=== PATIENT | female | born 1970 | race Caucasian/White ===

== ENCOUNTER 2018-02-02 13:32 | Emergency (ER) | payer BC ==
[2018-02-02 13:49] VITALS: BP 118/99
[2018-02-02] MEDS ORDERED: Albuterol 0.083% 2.5 MG/3 ML Neb Soln NEB ONE (13:58)
[2018-02-02] MEDS ORDERED: predniSONE 20 MG Tab PO ONE (14:05)
[2018-02-02] MEDS ORDERED: Benzonatate 100 MG Cap PO ONE (14:06)
--- NOTE | 2018-02-02 14:19 | EDM.PDOC ---
ED HPI GENERAL MEDICAL PROBLEM - General Chief Complaint: Respiratory Problem Stated Complaint: COUGH/TROUBLE BREATHING Time Seen by Provider: 02/02/18 13:54 Source of Information: Reports: Patient History Limitations: Reports: No Limitations - History of Present Illness INITIAL COMMENTS - FREE TEXT/NARRATIVE: Patient is a 47-year-old female presents ED complaining of coughing, shortness of breath, and wheezing. She denies any chest pain. No fever. She was seen in the [facility] ER with basic labs, chest x-ray, and EKG completed. She was diagnosed with bronchitis and placed on Zithromax and albuterol inhaler. Completed abx course. She has been taking the Ventolin inhaler as prescribed with no improvements to coughing. She is not sleeping well due to the cough. She stopped smoking a week ago Tuesday. She has no diagnosis of COPD. She has no other past medical history and currently taking no medications. She denies any chest pain, nausea/vomiting, abdominal pain, dysuria, pain to her lower extremities, swelling to the lower extremities, or any additional complaints. There has been no recent sick exposures. Chest Pain Score (Numeric/FACES): 7 - Related Data Allergies Allergy/AdvReac Type Severity Reaction Status Date / Time Penicillins AdvReac Mild yeast Verified 02/02/18 13:42 infection Home Meds: Home Meds Omeprazole [Prilosec] 10 mg PO BTNUNITS 11/24/15 [History] Albuterol [Ventolin HFA] 2 puff INH Q4HR 02/02/18 [History] Benzonatate [Tessalon Perle] 100 mg PO TID PRN #21 capsule 02/02/18 [Rx] Prednisone [IMW: predniSONE] 2 tab PO WITHBREAKFAST #10 tab 02/02/18 [Rx] Past Medical History HEENT History: Reports: None Cardiovascular History: Reports: None Respiratory History: Reports: None Gastrointestinal History: Reports: GERD Genitourinary History: Reports: Renal Calculus Musculoskeletal History: Reports: Fracture Other Musculoskeletal History: hx fx elbow, Current Left Plantar fasciatis flare up Neurological History: Reports: None, Migraines Psychiatric History: Reports: None Endocrine/Metabolic History: Reports: None Hematologic History: Reports: Anemia, Blood Transfusion(s) Immunologic History: Reports: None Oncologic (Cancer) History: Reports: None Dermatologic History: Reports: None - Past Surgical History Musculoskeletal Surgical History: Reports: Carpal Tunnel Social & Family History - Family History Family Medical History: Noncontributory - Tobacco Use Smoking Status *Q: Former Smoker Years of Tobacco use: 20 Packs/Tins Daily: 1 Used Tobacco, but Quit: Yes Month/Year Tobacco Last Used: 01/29 - Caffeine Use Caffeine Use: Reports: Soda, Tea - Recreational Drug Use Recreational Drug Use: No Drug Use in Last 12 Months: No ED ROS GENERAL - Review of Systems Review Of Systems: ROS reveals no pertinent complaints other than HPI. ED EXAM, GENERAL - Physical Exam Exam: See Below Exam Limited By: No Limitations General Appearance: Alert, WD/WN, Other (Long episodes of coughing.) Eye Exam: Bilateral Eye: Normal Inspection Ears: Hearing Grossly Normal Nose: Normal Inspection Throat/Mouth: Normal Inspection, Normal Oropharynx, Normal Voice, No Airway Compromise Neck: Normal Inspection Respiratory/Chest: No Respiratory Distress, No Accessory Muscle Use, Chest Non- Tender, Wheezing (Throughout) Cardiovascular: Normal Peripheral Pulses, Tachycardia (With coughing) Peripheral Pulses: 4+: Radial (L), Radial (R) GI/Abdominal: Normal Bowel Sounds, Soft, Non-Tender, No Organomegaly, No Distention Extremities: Normal Inspection, Non-Tender, No Pedal Edema, Normal Capillary Refill Neurological: Alert, Oriented, CN II-XII Intact, Normal Cognition, No Motor/ Sensory Deficits Psychiatric: Normal Affect, Normal Mood Skin Exam: Warm, Dry, Intact, Normal Color Course - Vital Signs Last Recorded V/S: Last Vital Signs Temp 97 F 02/02/18 13:43 Pulse 97 02/02/18 13:43 Resp 26 H 02/02/18 13:43 BP 118/99 H 02/02/18 13:43 Pulse Ox 94 L 02/02/18 14:25 - Orders/Labs/Meds Orders: Active Orders 24 hr Category Date Time Status RT Aerosol Therapy [RC] ASDIRECTED Care 02/02/18 14:00 Active RT Aerosol Therapy [RC] ASDIRECTED Care 02/02/18 14:25 Active Labs: Laboratory Tests 02/02/18 02/02/18 02/02/18 Range/Units 14:45 14:45 14:45 WBC 11.44 H (3.98-10.04) K/mm3 RBC 4.51 (3.98-5.22) M/mm3 Hgb 13.5 (11.2-15.7) gm/L Hct 40.3 (34.1-44.9) % MCV 89.4 (79.4-94.8) fl MCH 29.9 (25.6-32.2) pg MCHC 33.5 (32.2-35.5) g/dl RDW Std Deviation 41.9 (36.4-46.3) fL Plt Count 382 H (182-369) K/mm3 MPV 9.0 L (9.4-12.3) fl Neut % (Auto) 62.4 (34.0-71.1) % Lymph % (Auto) 25.1 (19.3-51.7) % [place] % (Auto) 6.6 (4.7-12.5) % Eos % (Auto) 5.3 (0.7-5.8) Baso % (Auto) 0.4 (0.1-1.2) % Neut # (Auto) 7.13 H (1.56-6.13) K/mm3 Lymph # (Auto) 2.87 (1.18-3.74) K/mm3 [place] # (Auto) 0.76 H (0.24-0.36) K/mm3 Eos # (Auto) 0.61 H (0.04-0.36) K/mm3 Baso # (Auto) 0.05 (0.01-0.08) K/mm3 Sodium 143 (136-145) mEq/L Potassium 3.1 L (3.5-5.1) mEq/L Chloride 105 (98-107) mEq/L Carbon Dioxide 23 (21-32) mEq/L Anion Gap 18.1 H (5-15) BUN 9 (7-18) mg/dL Creatinine 0.8 (0.55-1.02) mg/dL Est Cr Clr Drug Dosing 68.02 mL/min Estimated GFR (MDRD) > 60 (>60) mL/min BUN/Creatinine Ratio 11.3 L (14-18) Glucose 84 (74-106) mg/dL Calcium 9.3 (8.5-10.1) mg/dL Total Bilirubin 0.4 (0.2-1.0) mg/dL AST 28 (15-37) U/L ALT 22 (14-59) U/L Alkaline Phosphatase 113 (46-116) U/L C-Reactive Protein 0.9 (<1.0) mg/dL Total Protein 7.7 (6.4-8.2) g/dl Albumin 3.9 (3.4-5.0) g/dl Globulin 3.8 gm/dL Albumin/Globulin Ratio 1.0 (1-2) Meds: Medications Discontinued Medications Generic Name Dose Route Start Last Admin Trade Name Michael PRN Reason Stop Dose Admin Albuterol 2.5 mg 02/02/18 13:58 02/02/18 14:05 Proventil Neb Soln NEB 02/02/18 13:59 2.5 mg ONETIME ONE Administration Albuterol/Ipratropium 3 ml 02/02/18 14:25 02/02/18 14:29 Duoneb 3.0-0.5 Mg/3 Ml NEB 02/02/18 14:26 3 ml ONETIME ONE Administration Albuterol/Ipratropium Confirm 02/02/18 14:31 02/02/18 14:37 Duoneb 3.0-0.5 Mg/3 Ml Administered 02/02/18 14:32 Not Given Dose 3 ml .ROUTE .STK-MED ONE Benzonatate 200 mg 02/02/18 14:06 02/02/18 14:41 Tessalon Perles PO 02/02/18 14:07 200 mg ONETIME ONE Administration Prednisone 40 mg 02/02/18 14:05 02/02/18 14:42 Prednisone PO 02/02/18 14:06 40 mg ONETIME ONE Administration - Re-Assessments/Exams Free Text/Narrative Re-Assessment/Exam: Patient has diffuse wheezing throughout. Ordered albuterol neb treatment 2.5 mg 1. In addition Tessalon Perles 200 mg by mouth and also prednisone 40 mg by mouth for bronchitis. Initial lab studies will include CRP, CBC, CMP, troponin, and chest x-ray two- view. Will obtain to retrieve notes from ER visit. Review previous notes patient was diagnosed with bronchitis placed on Zithromax , albuterol inhaler. Chest x-ray was negative for pneumonia. WBC is within normal limits. EKG sinus rhythm. Troponin negative. CMP did not reveal any acute findings. Patient's magnesium is 1.7 with potassium 3.2. EKG: SR rate of 72. No acute changes. 02/02/18 14:38 Chest x-ray reviewed with Dr. Horton with no acute findings noted. 1510 reassessment, vss stable. patient is feeling better. Cough has improved. Awaiting for lab results. 02/02/18 15:31 Still awaiting for CMP. White blood cell count 11.44, hemoglobin 13.5, neutrophil percentage is normal. Platelet count 382. CRP 0.9. 02/02/18 16:13 Still awaiting on CMP. 02/02/18 16:17 Reassessment, coughing has subsided awaiting on CMP. WIll call her with results if any significant findings. Will discharge patient home with instruction for bronchitis. CMP reviewed. Potassium 3.1 mildly low. She is using a albuterol inhaler. Departure - Departure Time of Disposition: 16:17 Disposition: Home, Self-Care 01 Condition: Good Clinical Impression: Bronchitis - Discharge Information Prescriptions: Benzonatate [Tessalon Perle] 100 mg PO TID PRN #21 capsule PRN Reason: Cough Prednisone [IMW: predniSONE] 2 tab PO WITHBREAKFAST #10 tab Instructions: Acute Bronchitis, Adult, [id number] Referrals: PCP,Not In Area [Primary Care Provider] - Forms: ED Department Discharge, ED Return to Work/School Form Additional Instructions: Take the prednisone and Tessalon Perles as prescribed. Push the fluids. Refrain from smoking. Continue utilizing albuterol inhaler 1-2 puffs every 4 hours for wheezing, cough, shortness of breath. Follow-up with PCP in one week for reevaluation. Return to the ED if you develop any new or worsening symptoms. - My Orders Last 24 Hours: My Active Orders 02/02/18 14:00 RT Aerosol Therapy [RC] ASDIRECTED 02/02/18 14:25 RT Aerosol Therapy [RC] ASDIRECTED - Assessment/Plan Last 24 Hours: My Active Orders 02/02/18 14:00 RT Aerosol Therapy [RC] ASDIRECTED 02/02/18 14:25 RT Aerosol Therapy [RC] ASDIRECTED
[2018-02-02] MEDS ORDERED: Albuterol/Ipratropium 3.0-0.5 MG/3 ML Neb Soln NEB ONE (14:25)
[2018-02-02] MEDS ORDERED: Albuterol/Ipratropium 3.0-0.5 MG/3 ML Neb Soln ONE (14:31)
--- NOTE | 2018-02-02 14:42 | CR ---
Chest: Two views of the chest were obtained. Comparison: No previous study. Heart size and mediastinum are normal. Lungs are clear. Bony structures are unremarkable. Surgical clips are seen within the upper right abdomen from previous cholecystectomy. Impression: 1. Nothing acute is seen on two-view chest x-ray. Diagnostic code #2
== END 2018-02-02 16:30 | disposition home or self-care (01) ==
LOC: JD.ED 13:32
DX: J40 Bronchitis, not specified as acute or chronic (principal); Z88.0 Allergy status to penicillin; Z79.899 Other long term (current) drug therapy; Z87.891 Personal history of nicotine dependence
CPT/HCPCS: 36415; 71046; 80053; 85025; 86140; 94640; 99285; A9270; 99284